=== PATIENT | female | born 1990 | race Two or more races ===

== ENCOUNTER 2022-09-23 17:54 | Emergency (ER) | payer OTHER ==
[~2022-09-23] VITALS: Ht 162.6 cm; Wt 93.9 kg
[2022-09-23] MEDS ORDERED: LABETALOL HCL100 MG PO (17:58)
[2022-09-23] MEDS ORDERED: PRENATAL + DHA1 EAC1 PO (17:58)
[2022-09-23] MEDS ORDERED: DICLEGIS DR 101 EACH PO (17:58)
== END 2022-09-23 21:19 | disposition home or self-care (01) ==
LOC: ER 17:54
DX: O20.9 Hemorrhage in early pregnancy, unspecified (principal); Z3A.09 9 weeks gestation of pregnancy

== ENCOUNTER 2022-10-08 09:10 | Outpatient (CLI) | payer OTHER ==
[~2022-10-08 09:10] MED LIST: DICLEGIS DR 101 EACH PO; LABETALOL HCL100 MG PO; PRENATAL + DHA1 EAC1 PO
== END 2022-10-08 11:00 | disposition home or self-care (01) ==
LOC: PRENATAL 09:10
PROVIDERS: ATTEND Obstetrics & Gynecology Maternal & Fetal Medicine
DX: O36.80X0 Pregnancy with inconclusive fetal viability, not applicable or unspecified (principal); O99.280 Endocrine, nutritional and metabolic diseases complicating pregnancy, unspecified trimester; O10.019 Pre-existing essential hypertension complicating pregnancy, unspecified trimester; Z14.8 Genetic carrier of other disease; Z36 Encounter for antenatal screening of mother

== ENCOUNTER 2022-12-08 13:38 | Outpatient (CLI) | payer OTHER | END 2022-12-08 14:45 | disposition home or self-care (01) | LOC: PRENATAL 13:38 | PROVIDERS: ATTEND Obstetrics & Gynecology Maternal & Fetal Medicine | DX: O35.9XX0 Maternal care for (suspected) fetal abnormality and damage, unspecified, not applicable or unspecified (principal); O10.019 Pre-existing essential hypertension complicating pregnancy, unspecified trimester; O99.280 Endocrine, nutritional and metabolic diseases complicating pregnancy, unspecified trimester; O35.3XX0 Maternal care for (suspected) damage to fetus from viral disease in mother, not applicable or unspecified; Z3A.20 20 weeks gestation of pregnancy ==

== ENCOUNTER 2023-02-04 13:46 | Outpatient (CLI) | payer OTHER | END 2023-02-04 14:36 | disposition home or self-care (01) | LOC: PRENATAL 13:46 | PROVIDERS: ATTEND Obstetrics & Gynecology Maternal & Fetal Medicine | DX: O26.849 Uterine size-date discrepancy, unspecified trimester (principal); O10.019 Pre-existing essential hypertension complicating pregnancy, unspecified trimester; O99.280 Endocrine, nutritional and metabolic diseases complicating pregnancy, unspecified trimester; Z3A.28 28 weeks gestation of pregnancy ==

== ENCOUNTER 2023-03-04 14:29 | Outpatient (CLI) | payer OTHER | END 2023-03-04 17:14 | disposition home or self-care (01) | LOC: PRENATAL 14:29 | PROVIDERS: ATTEND Obstetrics & Gynecology Maternal & Fetal Medicine | DX: O26.849 Uterine size-date discrepancy, unspecified trimester (principal); O36.8199 Decreased fetal movements, unspecified trimester, other fetus; O10.019 Pre-existing essential hypertension complicating pregnancy, unspecified trimester; O99.280 Endocrine, nutritional and metabolic diseases complicating pregnancy, unspecified trimester; Z3A.32 32 weeks gestation of pregnancy ==

== ENCOUNTER 2023-04-01 15:03 | Outpatient (CLI) | payer OTHER | END 2023-04-01 16:40 | disposition home or self-care (01) | LOC: PRENATAL 15:03 | PROVIDERS: ATTEND Obstetrics & Gynecology Maternal & Fetal Medicine | DX: O26.849 Uterine size-date discrepancy, unspecified trimester (principal); O36.8199 Decreased fetal movements, unspecified trimester, other fetus; O10.019 Pre-existing essential hypertension complicating pregnancy, unspecified trimester; O99.280 Endocrine, nutritional and metabolic diseases complicating pregnancy, unspecified trimester; Z3A.35 35 weeks gestation of pregnancy ==

== ENCOUNTER 2023-04-14 20:38 | Inpatient (IN) | payer OTHER ==
[~2023-04-14] VITALS: Ht 162.6 cm; Wt 2.7 kg
[2023-04-14] MEDS ORDERED: ADULT LOW DOSE81 M1 PO (21:40)
[2023-04-14] MEDS ORDERED: LABETALOL HCL200 MG PO (21:41)
[2023-04-14 21:47] LABS: HEMATOCRIT 34.9 % (36.0-45.00); HEMOGLOBIN 11.8 g/dL (12.0-15.00); MEAN CORPUSCULAR HEMOGLOBIN 27.7 pg (27.00-32.0); MEAN CORPUSCULAR HGB CONC 33.8 g/dl (32.0-36.0); PLATELET COUNT 303 K/uL (150-450); RED BLOOD COUNT 4.25 M/uL (4.00-6.00); RED CELL DISTRIBUTION WIDTH 16.1 % (11.5-14.5)
[2023-04-14 22:08] LABS: ALBUMIN 3.1 gm/dL (3.4-5.0); BILIRUBIN TOTAL 0.24 mg/dL (0.3-1.2); CREATININE SERUM 0.74 mg/dL (0.55-1.02); GFR 89.84; GLOBULINA 3.7 G/DL (2.4-3.5); POTASSIUM 3.99 mEq/L (3.5-5.1); TOTAL PROTEIN 6.8 gm/dL (6.4-8.2)
[2023-04-14 22:36] LABS: PARTIAL THROMBOPLASTIN TIME 28.3 SECONDS (22.0-34.0)
[2023-04-16 10:32] LABS: HEMATOCRIT 28.8 % (36.0-45.00); HEMOGLOBIN 9.8 g/dL (12.0-15.00); MEAN CELL VOLUME 82.6 fL (80.00-100.00); MEAN CORPUSCULAR HEMOGLOBIN 28.2 pg (27.00-32.0); MEAN CORPUSCULAR HGB CONC 34.1 g/dl (32.0-36.0); PLATELET COUNT 210 K/uL (150-450); RED BLOOD COUNT 3.48 M/uL (4.00-6.00); RED CELL DISTRIBUTION WIDTH 15.9 % (11.5-14.5)
[2023-04-17] MEDS ORDERED: IBU800 MG PO (10:12)
[2023-04-17] MEDS ORDERED: LABETALOL HCL100 MG PO (10:12)
[2023-04-17] MEDS ORDERED: SIMETHICONE125 M1 PO (10:13)
[2023-04-17] MEDS ORDERED: COLACE100 MG PO (10:13)
== END 2023-04-17 14:31 | disposition home or self-care (01) | DRG 788 ==
LOC: LDR 20:38 → O/R 04-15 17:41 → OB/GYN 04-15 21:16
PROVIDERS: Obstetrics & Gynecology; Student in an Organized Health Care Education/Training Program; ADMIT Obstetrics & Gynecology; ATTEND Obstetrics & Gynecology
PROC: 4A1HXCZ Monitoring of Products of Conception, Cardiac Rate, External Approach (ICD-10-PCS; 2023-04-14)
PROC: 10D00Z1 Extraction of Products of Conception, Low, Open Approach (ICD-10-PCS; principal; 2023-04-15 16:00)
DX: O10.02 Pre-existing essential hypertension complicating childbirth (principal); Z3A.38 38 weeks gestation of pregnancy; Z37.0 Single live birth; Z20.822 Contact with and (suspected) exposure to COVID-19